=== PATIENT | female | born 1970 | race Caucasian/White ===

== ENCOUNTER 2019-02-03 14:16 | Outpatient (CLI) | payer OTHER, SELFPAY ==
--- NOTE | 2019-02-03 15:14 | MMO ---
Bilateral MAMMO Bilat Diag [facility]. CLINICAL HISTORY: Patient is 48 years old and is seen for diagnostic exam and lump or thickening in the left breast. The patient has the following family history of breast cancer: paternal aunt. The patient has no personal history of cancer. VIEWS: The views performed were: bilateral craniocaudal with tomosynthesis; bilateral mediolateral oblique with tomosynthesis; and bilateral mediolateral with tomosynthesis. FILMS COMPARED: The present examination has been compared to prior imaging studies performed at [facility] on 10/02/2014, 02/06/2017, 02/20/2017 and 02/03/2019. This study has been interpreted with the assistance of computer-aided detection. MAMMOGRAM FINDINGS: There are scattered fibroglandular densities. There are no suspicious masses, suspicious calcifications, or new areas of architectural distortion. There are no mammographic or sonographic abnormalities in the area of palpable concern. The patient is referred back to her clinician. Negative imaging findings should not preclude biopsy if clinical findings are suspicious. IMPRESSION: THERE IS NO MAMMOGRAPHIC EVIDENCE OF MALIGNANCY. THE RESULTS OF THIS EXAM WERE SENT TO THE PATIENT. ACR BI-RADS Category 1 - Negative MAMMOGRAPHY NOTE: 1. A negative mammogram report should not delay a biopsy if a dominant of clinically suspicious mass is present. 2. Approximately 10% to 15% of breast cancers are not detected by mammography. 3. Adenosis and dense breasts may obscure an underlying neoplasm. Reported by: JESSIKA SANTANA MD Electonically Signed: [id number]
--- NOTE | 2019-02-03 16:29 | ULT ---
LIMITED LEFT BREAST ULTRASOUND: 02/03/19 PROVIDED CLINICAL HISTORY: Left breast palpable abnormality. FINDINGS: Limited sonographic interrogation was performed in the region of reported palpable concern from the 3 to 6 o'clock positions of the left breast. The sonographic appearance of the breast parenchyma in th is region is normal. IMPRESSION: BIRADS 1: Negative Routine annual screening mammography (for women over age 40) Negative imaging findings should not preclude further evaluation of a clinically suspicious area. The patient is referred back to her clinician. POS: OFF
== END 2019-02-03 14:17 | disposition home or self-care (01) ==
LOC: BICMAMMO 14:16 → EDSTATUS 14:30
PROVIDERS: ATTEND Physician Assistant
DX: N63.20 Unspecified lump in the left breast, unspecified quadrant (principal)
CPT/HCPCS: 77066; G0279

== ENCOUNTER 2019-08-10 10:40 | Outpatient (CLI) | payer OTHER ==
--- NOTE | 2019-08-10 13:07 | CT ---
EXAM: CT ABDOMEN AND PELVIS HISTORY: Right lower quadrant pain. COMPARISON: None. Procedure: Multiple contiguous axial images were obtained and a CT of the abdomen and pelvis with IV contrast. C oronal reformats were performed. FINDINGS: Lower Chest: Areas of scar and/or atelectasis are noted Vessels: Normal caliber aorta Heart: Normal heart size. No pericardial effusion Abdomen: Portal vein:Patent Gallbladder: Cholelithiasis, without evidence of cholecystitis Liver: Diffuse hypoattenuation liver suggesting hepatic steatosis. No enhancing masses Pancreas: within normal limits. Spleen: within normal limits. Adrenals: within normal limits. Kidneys: Symmetric enhancement. No obstructive uropathy. Peritoneum: No ascites or free air, no fluid collection. Bowel: Gastric mucosa, duodenum and multiple normal caliber small bowel loops are noted. Ileocecal ju nction is normal. Contrast opacifies a normal-appearing colon. Diverticulosis, without evidence of diverticulitis. Emanating from the cecal apex is a blind-ending tubular structure measuring 1.5 cm. T here is adjacent stranding and fluid in the mesentery. No abscess or perforation. Mild enlarged adjacent reactive lymph nodes are noted. Mesentery and Retroperitoneum: Enlarged right lower quadrant lymph nodes, presumed be reactive. Abdominal Wall: Umbilical hernia containing mesenteric fat Pelvis: Reproductive Organs: Reproductive organs are unremarkable. Pelvis: No mass, lymphadenopathy, free air or free fluid. Bladder: within normal limits. Bones: within normal limits. IMPRESSION: 1. Appendicitis. No evidence of abscess or perforation 2. Reactive the right lower quadrant lymph nodes 3. Results study discussed with Dr. Blackmon is 08/10/2019 at 1:04 PM Code CR
== END 2019-08-10 10:41 | disposition home or self-care (01) ==
LOC: SCSCT 10:40
PROVIDERS: ATTEND Specialist
DX: R10.31 Right lower quadrant pain (principal); K37 Unspecified appendicitis
CPT/HCPCS: 74177

== ENCOUNTER 2019-08-10 13:45 | Day surgery (SDC) | payer SELFPAY ==
[~2019-08-10 13:45] MED LIST: Dexamethasone 20 MG/5 ML VIAL ONE; EPHEDRINE 25 MG/5 ML SYRINGE ONE; Glycopyrrolate 0.2 MG/ML 5 ML SYRINGE ONE; Lidocaine 1% PF 5 ML VIAL ONE; Ondansetron PF 4 MG/2 ML Vial ONE; PHENYLEPHRINE-NS 100 MCG/ML 10 ML SYRINGE ONE; PROPOFOL 200 MG/20 ML VIAL ONE; Rocuronium Bromide 10 MG/ML (10ML VIAL) ONE; Succinylcholine Chloride 20 MG/ML 10 ml SYRINGE FS ONE
[2019-08-10] MEDS ORDERED: Ketorolac Tromethamine 30 MG/ML VIAL ONE (14:05)
[2019-08-10] MEDS ORDERED: Acetaminophen 500 MG TAB ONE (14:05)
[2019-08-10] MEDS ORDERED: Fentanyl 100 MCG/2 ML VIAL ONE ×3 (14:28→17:04)
[2019-08-10] MEDS ORDERED: Lidocaine 1% (PF) 30 ML VIAL ONE (14:32)
[2019-08-10] MEDS ORDERED: Bupivacaine PF 0.5% 30 ML VIAL ONE (14:32)
[2019-08-10] MEDS ORDERED: HYDROcodone/Acetaminophen 5/325 mg Tablet ONE (18:46)
--- NOTE | 2019-08-10 23:27 | OP ---
DATE OF PROCEDURE: 08/10/2019 PREOPERATIVE DIAGNOSIS: Acute appendicitis. POSTOPERATIVE DIAGNOSIS: Acute appendicitis. PROCEDURE PERFORMED: Laparoscopic appendectomy. ANESTHESIA: General endotracheal. INDICATIONS: The patient is a 49-year-old obese white female. She has a 3-day history of right lower quadrant abdominal pain. She has CT-proven appendicitis and was taken to the operating room at this time for appendectomy. DESCRIPTION OF OPERATION: Informed consent was obtained and patient taken to the operating room where general endotracheal anesthesia was obtained with patient in supine position. Yo catheter was placed. Abdomen was prepped with ChloraPrep and draped in sterile fashion. Local anesthetic was infiltrated using 0.25% Marcaine with epinephrine. A 5 mm infraumbilical incision was created through which a Veress needle was passed into the peritoneal cavity and pneumoperitoneum was established with carbon dioxide up to a pressure of 10 mmHg. A 5 mm trocar port was passed through the same incision. A laparoscopic camera was passed through this port. Under direct vision, 2 additional ports were placed including a 5 mm left lower quadrant port and a 12 mm suprapubic port. Attention was turned to the right lower quadrant. There was an obvious inflamed mass consistent with acute appendicitis. I mobilized the terminal ileum away from the lateral abdominal wall. I was able to identify the appendix. Unfortunately, this and the surrounding tissue were severely inflamed. The appendix was densely inflamed to the lateral abdominal wall. There were also dense inflammatory adhesions to the distal small bowel. The mesoappendix was extremely inflamed and thickened and difficult to grasp. When it was grasped, it was very fragile and friable. I began dissecting through the mesoappendix with electrocautery, maintaining the base. With substantial difficulty, I mobilized down to the base of the appendix. There was still substantial inflammation at this point. I therefore decided to use a stapler to divide the appendix at its base. A 45 mm stapler with a blue load was utilized to divide the appendix at its base, attempting to remove a small cuff of cecum as well. Specimen was placed in a specimen retrieval sac and was removed through the suprapubic port site. The fascia was closed with 0 Vicryl suture using a GraNee needle. The pelvis and right lower quadrant were thoroughly irrigated. All irrigant was aspirated. The staple line in the base of the appendix was examined and found to be intact. All ports removed under direct vision. Pneumoperitoneum was carefully evacuated. 0.25% Marcaine with epinephrine was infiltrated into each port site. Skin edges approximated with 4-0 Monocryl subcuticular suture. Dermabond was placed externally. There were no complications. The patient tolerated the procedure well and was taken to recovery in stable condition. Job ID: [id number]
== END 2019-08-10 18:55 | disposition home or self-care (01) ==
LOC: SDC 13:45
PROVIDERS: ATTEND Specialist
PROC: 0DTJ4ZZ Resection of Appendix, Percutaneous Endoscopic Approach (ICD-10-PCS; principal; 2019-08-10)
DX: K35.80 Unspecified acute appendicitis (principal); J45.909 Unspecified asthma, uncomplicated; Z91.012 Allergy to eggs
CPT/HCPCS: 88304; J0694; J1100; J1885; J2001; J2405; J2704; J3010; S0020